=== PATIENT | male | born 1960 | race Caucasian/White ===

== ENCOUNTER → 2021-05-01 | Outpatient (CLI) | payer OTHER ==
[~2021-05-01] MED LIST: ASPI325EC PO; ERYT.5TO LEFTEYE; OMEP20ER PO; OXYACE5T PO; PRED10 PO; Percocet 5-3251 EACH PO
== END | disposition home or self-care (01) ==
LOC: LAB 08:45 → LAB SHORT 08:45
DX: K21.9 Gastro-esophageal reflux disease without esophagitis (principal); K30 Functional dyspepsia; K29.71 Gastritis, unspecified, with bleeding
CPT/HCPCS: 87338

== ENCOUNTER 2021-10-30 06:06 | Day surgery (SDC) | payer OTHER ==
[~2021-10-30] VITALS: Ht 188 cm; Wt 161.1 kg
[~2021-10-30 06:06] MED LIST changes: +ALBU90OI INH; +AMLO5 PO; +BENZ100A PO; +CYCL10 PO; +LOSARTAN-HCTZ1 EACH PO; +PREG100 PO; +SUCR1 PO; +SYMBICORT 160-4.6 GM INH
[2021-10-30] MEDS ORDERED: SULTRIDS PO (06:23)
--- NOTE | 2021-10-30 07:21 | NUR ---
Ambulatory in Day Surgery. History, Chart, Medications and Allergies reviewed before start of procedure. Lungs clear T/O to Auscultation. Patient confirms NPO status and agrees with scheduled surgery. Pre-Op teaching done. Pt verbalizes understanding.
--- NOTE | 2021-10-30 08:51 | NUR ---
10/30/21 0851 Wilmer Gonzalez ADDITIONAL DOSE OF VANCO 1 GM GIVEN AT 0715 IN THE OR AT 0835 IN A CONTINOUS FASHION BY CLAIRE IN LEFT FOREARM IV.
--- NOTE | 2021-10-30 17:44 | NUR ---
SUMMARY NO ACUTE CHANGES SINCE ARRIVING TO FLOOR FROM PACU. WORKED W/THERAPY. AMBULATED TO RESTROOM AND VOIDED. HAS BEEN SITTING UP IN RECLINER. PAIN CONTROLLED PER EMAR. POLAR PACK IN PLACE. CALL LIGHT IN REACH.
--- NOTE | 2021-10-30 19:04 | NUR ---
REPORT GIVEN TO ONCOMING SHIFT.
[2021-10-31 04:41] LABS: BASOPHILS ABSOLUTE AUTO 0.01 K/mm3 (0.00-0.23); BASOPHILS PERCENT AUTO 0 % (0-2); EOSINOPHILS PERCENT AUTO 0 % (0-6); Hematocrit 40.5 % (37.0-53.0); IMMATURE GRAN ABSOLUTE AUTO 0.06 K/mm3 (0.00-0.10); IMMATURE GRAN PERCENT AUTO 0 % (0-1); LYMPHOCYTES ABSOLUTE AUTO 1.27 K/mm3 (0.84-5.20); LYMPHOCYTES PERCENT AUTO 9 % (21-46); MONOCYTES ABSOLUTE AUTO 0.92 K/mm3 (0.16-1.47); MONOCYTES PERCENT AUTO 7 % (4-13); Mean Corpuscular HGB 28.3 pg (26.0-34.0); Mean Corpuscular HGB Conc 32.1 g/dL (31.5-36.5); Mean Corpuscular Volume 88 fL (80-100); Mean Platelet Volume 11.1 fL (9.1-12.4); NEUTROPHILS ABSOLUTE AUTO 11.88 K/mm3 (1.96-9.15); NEUTROPHILS PERCENT AUTO 84 % (41-73); Platelet Count 213 K/mm3 (150-400); RDW Coefficient Variation 13.5 % (11.7-14.2); Red Blood Cell Count 4.59 M/mm3 (4.30-5.90); White Blood Cell Count 14.14 K/mm3 (4.00-11.30)
[2021-10-31 05:18] LABS: Anion Gap 8 mmol/L (6-16); Blood Urea Nitrogen 20 mg/dL (8-24); Bun/Creatinine Ratio 22.2 (12.0-20.0); CO2, Blood 25 mmol/L (21-32); Calcium, Blood 8.6 mg/dL (8.5-10.1); Chloride, Blood 104 mmol/L (98-108); Glomerular Filtration Rate >60 (60-); Glucose, Blood 171 mg/dL (70-99); Potassium, Blood 4.3 mmol/L (3.5-5.5); Sodium, Blood 137 mmol/L (136-145)
--- NOTE | 2021-10-31 06:10 | NUR ---
SUMMARY PT MOVES WELL.AMBULATORY WITH ASSIST FOR BRP.VODIING WITHOUT DIFF AND TOLERATING PO.VERB PAIN MEDS EFFECTIVE.
[2021-10-31] MEDS ORDERED: Aspir 8181 MG PO (07:36)
[2021-10-31] MEDS ORDERED: ROXICODONE5 MG PO (07:36)
[2021-10-31] MEDS ORDERED: PROMETHAZINE12.5 M1 PO (07:37)
--- NOTE | 2021-10-31 10:32 | NUR ---
discharging CALLED [facility] INTO [facility] PER PT REQUEST. IV DC'D, CATHETER INTACT. REVIEWED DC INSTRUCTIONS, PT VERBALIZED UNDERSTANDING. PROVIDED AQUACEL DRESSING CHANGES. POLAR PACK AND PERSONAL POSSESSIONS PACKED UP. PT RECLINED IN RECLINER, AWAITING 'S ARRIVAL. CALL LIGHT IN REACH.
--- NOTE | 2021-10-31 11:55 | NUR ---
discharged PT LEFT UNIT IN WC W/POSSESSIONS,DC PAPERWORK, DRESSINGS AND POLAR PACK IN HAND TO RIDE WAITING OUTSIDE.
== END 2021-10-31 11:50 | disposition home or self-care (01) ==
LOC: ORSCMMR 06:06 → ORD 07:30 → ORSCMMR 07:30 → SURS 11:48 → ORSCMMR 10-31 11:50
PROVIDERS: Orthopaedic Surgery
PROC: 8E0YXBZ Computer Assisted Procedure of Lower Extremity (ICD-10-PCS; principal; 2021-10-30 07:30)
PROC: 0SRC0J9 Replacement of Right Knee Joint with Synthetic Substitute, Cemented, Open Approach (ICD-10-PCS; principal; 2021-10-30 07:30)
DX: M17.11 Unilateral primary osteoarthritis, right knee (principal); E66.01 Morbid (severe) obesity due to excess calories; Z68.42 Body mass index [BMI] 45.0-49.9, adult; I10 Essential (primary) hypertension; K21.9 Gastro-esophageal reflux disease without esophagitis; Z79.899 Other long term (current) drug therapy; J44.9 Chronic obstructive pulmonary disease, unspecified; Z87.891 Personal history of nicotine dependence
CPT/HCPCS: 36415; 73560-RT; 80048; 83735; 85025; 97110; 97110-CQ; 97116; 97116-CQ; 97162; 97530-CQ; A9270; C1713; C1776; J0171; J0690; J0735; J1100; J1885; J2250; J2370; J2405; J2550; J2704; J2795; J3010; J3370; J7050; J7120

== ENCOUNTER → 2022-06-17 | Outpatient (CLI) | payer OTHER ==
[~2022-06-17] MED LIST changes: +Aspir 8181 MG PO; +PROMETHAZINE12.5 M1 PO; +ROXICODONE5 MG PO; +SULTRIDS PO
== END ==
LOC: LAB SHORT 07:43 → LAB 07:43
DX: L60.2 Onychogryphosis (principal); B35.1 Tinea unguium
CPT/HCPCS: 88305; 88312

== ENCOUNTER → 2023-06-22 | Outpatient (CLI) | payer MEDICARE, OTHER ==
[2023-06-22 20:01] LABS: Protein, Urine Random 6.8 mg/dL (0.0-11.9); Protein/Creat Ratio, Ur Random 0.1
== END | disposition home or self-care (01) ==
LOC: LAB 10:45 → LAB SHORT 10:45
PROVIDERS: Student in an Organized Health Care Education/Training Program
DX: E11.65 Type 2 diabetes mellitus with hyperglycemia (principal)
CPT/HCPCS: 82570; 84156

== ENCOUNTER 2024-05-14 02:30 | Emergency (ER) | payer MEDICARE, OTHER ==
[~2024-05-14] VITALS: Ht 185.4 cm; Wt 147.0 kg
[2024-05-14 02:47] LABS: BASOPHILS ABSOLUTE AUTO 0.04 K/mm3 (0.00-0.23); BASOPHILS PERCENT AUTO 0 % (0-2); EOSINOPHILS ABSOLUTE AUTO 0.24 K/mm3 (0.00-0.68); EOSINOPHILS PERCENT AUTO 2 % (0-6); Hematocrit 41.4 % (37.0-53.0); Hemoglobin 13.4 g/dL (13.5-17.5); IMMATURE GRAN ABSOLUTE AUTO 0.03 K/mm3 (0.00-0.10); IMMATURE GRAN PERCENT AUTO 0 % (0-1); LYMPHOCYTES ABSOLUTE AUTO 1.56 K/mm3 (0.84-5.20); LYMPHOCYTES PERCENT AUTO 14 % (21-46); MONOCYTES ABSOLUTE AUTO 1.05 K/mm3 (0.16-1.47); MONOCYTES PERCENT AUTO 10 % (4-13); Mean Corpuscular HGB 27.7 pg (26.0-34.0); Mean Corpuscular HGB Conc 32.4 g/dL (31.5-36.5); Mean Corpuscular Volume 86 fL (80-100); Mean Platelet Volume 10.7 fL (9.1-12.4); NEUTROPHILS ABSOLUTE AUTO 8.18 K/mm3 (1.96-9.15); NEUTROPHILS PERCENT AUTO 74 % (41-73); Platelet Count 215 K/mm3 (150-400); RDW Coefficient Variation 15.1 % (11.7-14.2); RDW Standard Deviation 47.4 fL (35.1-46.3); Red Blood Cell Count 4.83 M/mm3 (4.30-5.90)
[2024-05-14 03:04] LABS: Albumin, Blood 3.4 g/dL (3.4-5.0); Albumin/Globulin Ratio 0.9 (0.8-1.8); Bilirubin, Total 0.6 mg/dL (0.1-1.0); Bun/Creatinine Ratio 26.6 (12.0-20.0); Calcium, Blood 8.6 mg/dL (8.5-10.1); Creatinine, Blood 0.83 mg/dL (0.60-1.20); Globulin, Blood 3.7 g/dL (2.2-4.0); Potassium, Blood 4.5 mmol/L (3.5-5.5); Total Protein, Blood 7.1 g/dL (6.4-8.2)
[2024-05-14 06:00] VITALS: BP 142/90
[2024-05-14] MEDS ORDERED: Acetaminophen 325 MG TABLET PO ONE (06:45)
== END 2024-05-14 06:43 | disposition home or self-care (01) ==
LOC: ER 02:30
PROVIDERS: Student in an Organized Health Care Education/Training Program
DX: R07.9 Chest pain, unspecified (principal); J44.9 Chronic obstructive pulmonary disease, unspecified; I10 Essential (primary) hypertension; K21.9 Gastro-esophageal reflux disease without esophagitis; Z87.891 Personal history of nicotine dependence; Z88.1 Allergy status to other antibiotic agents; Z79.899 Other long term (current) drug therapy; Z79.82 Long term (current) use of aspirin
CPT/HCPCS: 71045; 71275; 80053; 84484; 85025; 93005; 93010; 99285-25; Q9967

== ENCOUNTER → 2024-10-05 | Outpatient (CLI) | payer MEDICARE, OTHER | LOC: LAB SHORT 18:12 → LAB 18:12 | DX: L03.116 Cellulitis of left lower limb (principal) | CPT/HCPCS: 87070; 87077; 87147; 87186; 87205 ==